=== PATIENT | male | born 1980 | race Caucasian/White ===

== ENCOUNTER 2019-08-08 14:29 | Emergency (ER) | payer MEDICAID ==
[~2019-08-08] VITALS: Ht 172.7 cm; Wt 72.7 kg
[2019-08-08 15:03] VITALS: BP 106/56
[2019-08-08] MEDS ORDERED: DiphenhydrAMINE HCL 50 MG/ML VIAL IM ONE (15:15)
== END 2019-08-08 16:01 | disposition home or self-care (01) ==
LOC: EMS 14:31
DX: F44.9 Dissociative and conversion disorder, unspecified (principal); F17.210 Nicotine dependence, cigarettes, uncomplicated; F12.90 Cannabis use, unspecified, uncomplicated; F15.90 Other stimulant use, unspecified, uncomplicated
CPT/HCPCS: 96372; 99283; J1200